=== PATIENT | female | born 1955 | race Caucasian/White ===

== ENCOUNTER 2017-07-16 12:00 | Inpatient (IN) | payer OTHER ==
[~2017-07-16] VITALS: Ht 165.1 cm; Wt 75.6 kg
[~2017-07-16 12:00] MED LIST: CALC1TAB87 PO; HALO0.053 TOPICAL; KRIL300C3 PO; MAGN250T11 PO
[2017-07-16] MEDS ORDERED: ceFAZolin 2 GM PREMIX 0 ML ONE (12:20)
[2017-07-16] MEDS ORDERED: GENTAMICIN SULFATE 80 MG/2 ML VIAL ONE (12:20)
[2017-07-16 12:49] VITALS: BP 120/76; PULSE 75; RESP 18; TEMP 98.6; O2SAT 96
[2017-07-16 12:54] LABS: AUTOMATED NEUTROPHIL # 2.2 TH/MM3 (1.8-7.7); BASOPHIL % 0.4 % (0.0-2.0); EOSINOPHIL # 0.2 TH/MM3 (0-0.4); EOSINOPHIL % 5.9 % (0.0-4.0); HEMATOCRIT 40.9 % (35.0-46.0); HEMOGLOBIN 13.6 GM/DL (11.6-15.3); LYMPH % 27.9 % (9.0-44.0); LYMPHOCYTE # 1.1 TH/MM3 (1.0-4.8); MEAN CORPUSCULAR HEMOGLOBIN 30.6 PG (27.0-34.0); MEAN CORPUSCULAR HGB CONC 33.3 % (32.0-36.0); MEAN PLATELET VOLUME 6.9 FL (7.0-11.0); MONO % 10.8 % (0.0-8.0); MONOCYTE # 0.4 TH/MM3 (0-0.9); PLATELET COUNT 284 TH/MM3 (150-450); RED BLOOD COUNT 4.44 MIL/MM3 (4.00-5.30); RED CELL DISTRIBUTION WIDTH 14.4 % (11.6-17.2); WHITE BLOOD COUNT 3.9 TH/MM3 (4.0-11.0)
[2017-07-16] MEDS ORDERED: VANCOMYCIN 1 GM/200 ML INJ 200 ML IV ONE (12:55)
[2017-07-16] MEDS ORDERED: CHLORHEXIDINE GLUCONATE 4% SOLN 120 ML BTL TOPICAL SCH (13:00)
[2017-07-16] MEDS ORDERED: ceFAZolin 2 GM PREMIX 50 ML IV SCH (13:00)
[2017-07-16] MEDS ORDERED: SODIUM CHLORID 0.9% 500 ML IV PRN (13:00)
[2017-07-16] MEDS ORDERED: LACTATED RINGER'S 1000 ML IV PRN (13:00)
[2017-07-16] MEDS ORDERED: VANCOMYCIN 1000 MG/NS 250 ML (for <70 kg) IV SCH ×2 (13:00)
[2017-07-16] MEDS ORDERED: POVIDONE IODINE 5% (ANTISEPSIS KIT) 4 APPLICATIONS EACH NARE PRN (13:00)
[2017-07-16] MEDS ORDERED: METOPROLOL TARTRATE 25 MG TAB PO PRN (13:00)
[2017-07-16] MEDS ORDERED: CHLORHEXIDINE GLUCONATE 2 % 1 PACK (2 CLOTHS) TOPICAL PRN (13:00)
== END 2017-07-16 13:40 | disposition home or self-care (01) | DRG 561 ==
LOC: HSDI 12:00
PROVIDERS: ADMIT Orthopaedic Surgery Orthopaedic Surgery of the Spine; ATTEND Orthopaedic Surgery Orthopaedic Surgery of the Spine
DX: T84.090A Other mechanical complication of internal right hip prosthesis, initial encounter (principal); Z88.0 Allergy status to penicillin; Z53.8 Procedure and treatment not carried out for other reasons; Z88.2 Allergy status to sulfonamides
CPT/HCPCS: 85025; 86850; 86900; 86901; 86920; 99211; G0463; J0690; J1580; J3370

== ENCOUNTER 2017-07-18 05:18 | Inpatient (IN) | payer OTHER ==
[~2017-07-18] VITALS: Ht 162.6 cm; Wt 77.1 kg
[2017-07-18] MEDS ORDERED: SODIUM CHLORID 0.9% 500 ML IV PRN (05:45)
[2017-07-18] MEDS ORDERED: ceFAZolin 2 GM PREMIX 50 ML IV SCH (05:45)
[2017-07-18] MEDS ORDERED: METOPROLOL TARTRATE 25 MG TAB PO PRN (05:45)
[2017-07-18] MEDS ORDERED: POVIDONE IODINE 5% (ANTISEPSIS KIT) 4 APPLICATIONS EACH NARE PRN (05:45)
[2017-07-18] MEDS ORDERED: CHLORHEXIDINE GLUCONATE 2 % 1 PACK (2 CLOTHS) TOPICAL PRN (05:45)
[2017-07-18] MEDS ORDERED: LACTATED RINGER'S 1000 ML IV PRN (05:45)
[2017-07-18] MEDS ORDERED: VANCOMYCIN 1000 MG/NS 250 ML (for <70 kg) IV SCH ×2 (05:45)
[2017-07-18] MEDS ORDERED: CHLORHEXIDINE GLUCONATE 4% SOLN 120 ML BTL TOPICAL SCH (05:45)
[2017-07-18] MEDS ORDERED: VANCOMYCIN 1 GM/200 ML INJ 200 ML IV ONE (05:46)
[2017-07-18] MEDS ORDERED: GENTAMICIN SULFATE 80 MG/2 ML VIAL ONE (07:02)
[2017-07-18] MEDS ORDERED: GELFOAM SIZE 100 ONE (07:02)
[2017-07-18] MEDS ORDERED: HEPARIN SODIUM - SQ 10,000 UNITS/ML VIAL ONE (07:03)
[2017-07-18] MEDS ORDERED: THROMBIN (TOPICAL) 5,000 UNIT VIAL ONE (07:10)
[2017-07-18] MEDS ORDERED: APREPITANT 40 MG CAP ONE (07:13)
[2017-07-18] MEDS ORDERED: ACETAMINOPHEN 1000 MG/100 ML 100 ML IV ONE (08:57)
[2017-07-18] MEDS ORDERED: Post-op Orders (for Pharmacy) XX ONE (10:30)
[2017-07-18] MEDS ORDERED: MORPHINE SULFATE 8 MG/ML INJ IV PUSH PRN (10:30)
[2017-07-18] MEDS ORDERED: ALUMINUM/MAGNESIUM/SIMETH 30 ML CUP PO PRN (10:30)
[2017-07-18] MEDS ORDERED: ACETAMINOPHEN/HYDROcodone 325 MG/7.5 MG TAB PO PRN ×2 (10:30)
[2017-07-18] MEDS ORDERED: ONDANSETRON HCL 4 MG/2 ML VIAL IVP PRN (10:30)
[2017-07-18] MEDS ORDERED: WALKER WHEELS/F1 MIS (10:35)
[2017-07-18] MEDS ORDERED: MIDAZOLAM HCL 2 MG/2 ML VIAL ONE (10:35)
--- NOTE | 2017-07-18 10:35 | HHI.FF ---
Face to Face Verification Diagnosis: (1) Osteoarthritis of right hip (2) Prosthetic wear following total hip arthroplasty Physical Therapy Gait training, Transfer training, bed to chair Hip: Total hip, Protocol: Right, Posterior hip precautions Canvas Knee Splint: Other (at night while sleeping ) Right LE Weight Bearing: WB as tolerated Left LE Weight Bearing: WB as tolerated Nursing RN: 3 days/week x 2 weeks Nursing: Dressing changes (clean incision with alcohol and apply dry sterile dressing daily ) Additional Instructions Aspirin 81 mg BID x 4 weeks dvt prop I have seen patient Luzma Sanderson on 07/18/17. My clinical findings support the need for the requested home health care services because: Deconditioned w/ increased weakness I certify that my clinical findings support that this patient is homebound because: Post-op weakness Tone Vasquez MD Jul 18, 2017 10:35
[2017-07-18] MEDS ORDERED: BEDSIDE COMMODE1 MI1 (10:36)
[2017-07-18] MEDS ORDERED: *ONDANSETRON 4 MG VIAL PERIprocedural Use ONLY ONE (10:44)
[2017-07-18] MEDS: LACTATED RINGER'S 1000 ML INJ 1,000 ML IV SCH ×2 (11:00→22:59)
[2017-07-18] MEDS ORDERED: *morphine SULFATE 10 MG/ML PERIprocedure ONLY ONE (11:04)
[2017-07-18] MEDS ORDERED: DO NOT ADM ANY ANTICOAGULANT DRUGS PRN (11:15)
--- NOTE | 2017-07-18 11:29 | RADRPT ---
EXAM DATE/TIME: 07/18/2017 10:40 [place] COMPARISON: No previous studies available for comparison. INDICATIONS : Post op right hip MEDICAL HISTORY : None. SURGICAL HISTORY : bilateral hips ENCOUNTER: Subsequent ACUITY: 1 day PAIN SCORE: 0/10 LOCATION: Right hip FINDINGS: 2 AP views of the pelvis and proximal femurs were obtained as well as a crosstable lateral view of th e right hip. This demonstrates that the patient is status post right hip arthroplasty. The femoral an d acetabular components are intact and in normal alignment. There are postoperative changes with soft tissue swelling and gas. There is diffuse osteopenia. The patient is also status post remote left hi p arthroplasty. CONCLUSION: Expected postoperative changes status post right hip arthroplasty. Torres Limon MD on July 18, 2017 at 11:25 Board Certified Radiologist. This report was verified electronically.
[2017-07-18 12:00] VITALS: BP 109/68; PULSE 74; RESP 18; TEMP 96.3; O2SAT 94
[2017-07-18] MEDS ORDERED: GLYCOPYRROLATE 1 MG/5 ML SYRINGE IV PUSH ONE (12:00)
[2017-07-18] MEDS ORDERED: DEXAMETHASONE SOD PHOS 4 MG/ML VIAL IV ONE (12:00)
[2017-07-18] MEDS ORDERED: PROPOFOL 200 MG/20 ML AMP IV ONE (12:00)
[2017-07-18] MEDS ORDERED: PHENYLEPH/NS 1000 MCG/10 ML SYR IV ONE (12:00)
[2017-07-18] MEDS ORDERED: ePHEDrine/NS 25 MG/5 ML SYRINGE IV ONE (12:00)
[2017-07-18] MEDS ORDERED: LACTATED RINGER'S 1000 ML INJ 1,000 ML IV ONE (12:00)
[2017-07-18] MEDS ORDERED: LIDOCAINE HCL 1% PF 5 ML SYRINGE OTHER ONE (12:00)
[2017-07-18] MEDS ORDERED: NEOSTIGMINE 5 MG/5 ML SYRINGE IV PUSH ONE (12:00)
[2017-07-18] MEDS ORDERED: ONDANSETRON HCL 4 MG/2 ML VIAL IV ONE (12:00)
[2017-07-18] MEDS ORDERED: ROCURONIUM INJ 50 MG/5 ML SYRINGE IV PUSH ONE (12:00)
--- NOTE | 2017-07-18 13:08 | PD.OP ---
cc: Tone Vasquez MD; Krzysztof Vasquez MD Operative Report Date of Surgery: Jul 18, 2017 Preoperative Diagnosis: Malfunctioning right total hip replacement arthroplasty. Where of right hip polyethylene. Periacetabular osteolysis and granuloma. Postoperative Diagnosis: Same Procedure: Revision right total hip replacement arthroplasty, acetabulum and femoral head Anesthesia: Gen. Surgeon: Krzysztof Vasquez Circular Knitter Helper(s): Tone vasquez Operation and Findings: EBL: 400 cc INDICATION: This patient is a 61-year-old female who is approximately 21 year status post right total hip replacement. She's having significant eccentric wear of the acetabular liner with significant pain and findings consistent with ostial lysis and a significant granuloma. She presents for surgical treatment. NOTE: Tone Vasquez was present for the entire surgical procedure as my or first assist registered nurse. In my medical opinion her skill and care was necessary for the proper management of this patient. COMPONENTS: COMPANY: [employer] CUP: Duraloc 300, 48 mm STEM: AML, 14/16 taper HEAD: 28, +514/16 taper taper PROCEDURE: This patient was brought to the operating room and anesthetized in the supine position and positioned on the routine table in the clean air suite. The patient was then rolled to a right side up lateral position and held with a Biomet hip positioner. The hip and leg was scrubbed with alcohol followed by Hibiclens followed by chloro prep and draped sterilely. A timeout was done and antibiotics were given within a routine time window. A 4 inch incision was made starting along the posterior one third of the greater trochanter. The previous incision was excised. The iliotibial band was opened in line with the incision. The Charnley retractors were positioned. The posterior capsule and external rotators were taken down together in a sleeve. The sciatic nerve was palpated to be free of any obstruction or compression and posterior to the hip joint without any evidence of traction from the retractor. The gluteus marck was taken down from its insertion. A total capsulectomy was performed. The hip was dislocated posteriorly. The femoral head was removed. The trunnion appeared satisfactory. Very carefully the stem was inspected. There did not appear to be any loosening. The femoral stem was subluxed anteriorly. There was good exposure to the acetabulum. The acetabular shell removal device was utilized removing the liner. The deep portion of the acetabulum was inspected. This was tested carefully and had a very solid fixation without any evidence of loosening. The acetabulum was prepared. A constrained liner was positioned. This was snapped into position and very secure. The head was positioned and impacted. This was reduced having good leg length and offset. The constrained liner ring was positioned and impacted in position and carefully checked to make sure it was in proper orientation. Bone grafting was accomplished with accommodation demineralized bone matrix and chips. The bone grafting was very satisfactory. During the procedure the sciatic nerve was protected. The gluteus marck was repaired. The posterior capsule was repaired with interrupted #2 Tycron sutures. The fascia was closed with interrupted #1 Vicryl suture, subcutaneous tissue 2-0 Vicryl suture and skin with running intradermal 3-0 Vicryl followed by benzoin and Steri-Strips. A sterile dressing was applied. The sponge count needle counts and instrument counts were all correct. The patient was awakened and taken to the recovery room in satisfactory condition FINDINGS: There was evidence of significant ostial lysis especially around the proximal femur. This was all curetted and removed allowing bone grafting. There was no complication that was appreciated. Krzysztof Vasquez MD Jul 18, 2017 13:08
[2017-07-18 18:57] VITALS: O2SAT 94
[2017-07-18 20:00] VITALS: BP 90/52; PULSE 76; RESP 18; TEMP 97.2; O2SAT 94
[2017-07-18] MEDS ORDERED: ZOLPIDEM TARTRATE 5 MG TAB PO PRN (21:00)
[2017-07-18] MEDS: ASPIRIN EC 81 MG TABEC PO SCH (22:02)
[2017-07-18 23:40] VITALS: BP 94/62; PULSE 80; RESP 18; TEMP 98.3; O2SAT 95
[2017-07-19 04:00] VITALS: BP 91/51; PULSE 89; RESP 17; TEMP 98.5; O2SAT 93
[2017-07-19 04:35] LABS: HEMATOCRIT 29.3 % (35.0-46.0); HEMOGLOBIN 9.8 GM/DL (11.6-15.3)
--- NOTE | 2017-07-19 07:46 | PD.ORT.PN ---
Subjective Subjective Remarks pt doing well, has been up to the bathroom a few times already states she does not want norco, wants tramadol for pain Objective Vitals Vital Signs Date Time Temp Pulse Resp B/P (MAP) Pulse Ox O2 Delivery O2 Flow Rate FiO2 07/19/17 04:00 98.5 89 17 91/51 (64) 93 07/18/17 23:40 98.3 80 18 94/62 (73) 95 07/18/17 20:00 97.2 76 18 90/52 (65) 94 07/18/17 19:14 Room Air 07/18/17 18:57 94 Nasal Cannula 2.00 07/18/17 12:00 96.3 74 18 109/68 (82) 94 07/18/17 11:30 97.6 59 16 100/60 (73) 96 Nasal Cannula 2 07/18/17 11:15 60 16 102/65 (77) 96 Nasal Cannula 2 07/18/17 11:09 15 07/18/17 11:00 62 16 104/61 (75) 95 Nasal Cannula 2 07/18/17 10:45 63 16 110/62 (78) 99 Nasal Cannula 3 07/18/17 10:30 98.4 66 17 116/78 (91) 98 Nasal Cannula 3 I/O 07/18/17 07/18/17 07/18/17 07/19/17 07/19/17 07/19/17 07:00 15:00 23:00 07:00 15:00 23:00 Intake Total 1940 ml 580 ml 590 ml Output Total 100 ml Balance 1840 ml 580 ml 590 ml Intake Oral 480 ml 240 ml IV Total 1940 ml 100 ml 350 ml Output Estimated Blood Loss 100 ml # Voids 0 2 2 # Bowel Movements 0 0 Result Diagram: 07/19/17 0404 Objective Remarks right hip dressing dry and intact no calf tenderness neg homans sign +NVI Assessment & Plan Assessment and Plan POD # 1 s/p R rev LUCITA PT-WBAT, posterior hip precautions Aspirin 81 mg BID x 4 weeks DVT prop Tramadol for pain Anticipate d/c home with [facility] Saturday Re Javed Jul 19, 2017 07:46
[2017-07-19] MEDS ORDERED: TRAM50TA PO (07:48)
[2017-07-19 08:00] VITALS: BP 99/60; PULSE 89; RESP 16; TEMP 99; O2SAT 94
[2017-07-19] MEDS ORDERED: traMADol HCL 50 MG TAB PO PRN (08:00)
[2017-07-19] MEDS: ASPIRIN EC 81 MG TABEC PO SCH ×2 (09:07→21:27)
[2017-07-19] MEDS: traMADol HCL 50 MG TAB PO PRN ×2 (09:07→16:52)
[2017-07-19] MEDS: LACTATED RINGER'S 1000 ML INJ 1,000 ML IV SCH ×2 (11:29→21:27)
[2017-07-19 12:00] VITALS: BP 105/62; PULSE 81; RESP 16; TEMP 98.5; O2SAT 96
[2017-07-19 17:38] VITALS: O2SAT 96
[2017-07-19 20:00] VITALS: BP 107/62; PULSE 85; RESP 17; TEMP 98.7; O2SAT 95
[2017-07-19] MEDS: DOCUSATE SODIUM 100 MG CAP PO SCH (21:27)
[2017-07-20] VITALS: BP 113/66; PULSE 94; RESP 16; TEMP 100.3; O2SAT 95
[2017-07-20 04:15] VITALS: BP 116/63; PULSE 98; RESP 16; TEMP 100.3; O2SAT 95
[2017-07-20 08:00] VITALS: BP 133/80; PULSE 98; RESP 16; TEMP 99.8; O2SAT 95
--- NOTE | 2017-07-20 08:11 | PD.ORT.PN ---
Subjective Subjective Remarks feels good today Objective Vitals Vital Signs Date Time Temp Pulse Resp B/P (MAP) Pulse Ox O2 Delivery O2 Flow Rate FiO2 07/20/17 04:15 100.3 98 16 116/63 (80) 95 07/20/17 00:00 100.3 94 16 113/66 (82) 95 07/19/17 20:00 98.7 85 17 107/62 (77) 95 07/19/17 18:52 Room Air 07/19/17 17:38 96 21 07/19/17 12:00 98.5 81 16 105/62 (76) 96 I/O 07/19/17 07/19/17 07/19/17 07/20/17 07/20/17 07/20/17 07:00 15:00 23:00 07:00 15:00 23:00 Intake Total 590 ml 480 ml 480 ml Balance 590 ml 480 ml 480 ml Intake Oral 240 ml 480 ml 480 ml IV Total 350 ml # Voids 2 2 2 # Bowel Movements 0 0 0 Result Diagram: 07/19/17 0404 Objective Remarks right hip dressing with min serosang drainage, no surrounding erythema no calf tenderness neg homans sign +NVI goes sitting to standing well Assessment & Plan Assessment and Plan POD # 2 s/p R rev LUCITA PT-WBAT, posterior hip precautions Aspirin 81 mg BID x 4 weeks DVT prop Tramadol for pain Anticipate d/c home with c today Adam Cabezas MD Jul 20, 2017 08:11
[2017-07-20] MEDS: DOCUSATE SODIUM 100 MG CAP PO SCH (09:04)
[2017-07-20] MEDS: ASPIRIN EC 81 MG TABEC PO SCH (09:04)
[2017-07-20] MEDS: traMADol HCL 50 MG TAB PO PRN (09:05)
== END 2017-07-20 12:11 | disposition home health service (06) | DRG 468 ==
LOC: HSDI 05:18 → N06B 11:43
PROVIDERS: ADMIT Orthopaedic Surgery Orthopaedic Surgery of the Spine; ATTEND Orthopaedic Surgery Orthopaedic Surgery of the Spine
PROC: 0SP90JZ Removal of Synthetic Substitute from Right Hip Joint, Open Approach (ICD-10-PCS; 2017-07-18)
PROC: 0SR90JA Replacement of Right Hip Joint with Synthetic Substitute, Uncemented, Open Approach (ICD-10-PCS; principal; 2017-07-18 07:21)
DX: T84.060A Wear of articular bearing surface of internal prosthetic right hip joint, initial encounter (principal); T84.050A Periprosthetic osteolysis of internal prosthetic right hip joint, initial encounter; M81.0 Age-related osteoporosis without current pathological fracture; Z87.891 Personal history of nicotine dependence; Z96.643 Presence of artificial hip joint, bilateral; Y79.2 Prosthetic and other implants, materials and accessory orthopedic devices associated with adverse incidents; Y83.8 Other surgical procedures as the cause of abnormal reaction of the patient, or of later complication, without mention of misadventure at the time of the procedure
CPT/HCPCS: 73501; 85014; 85018; 86850; 86920; 86922; 94150; C1776; J0131; J0690; J1100; J1580; J1644; J2250; J2270; J2370; J2405; J2710; J3010; J3370; J7050; J7120; J8501; L1830